=== PATIENT | female | born 1985 ===

== ENCOUNTER 2018-05-18 15:43 | Emergency (ER) | payer SELFPAY ==
[2018-05-18 15:43] VITALS: BMI 26.3
[2018-05-18 16:20] VITALS: O2SAT 100
[2018-05-18] MEDS ORDERED: Sodium Chloride 0.9% 1,000 ML IV STA (17:18)
[2018-05-18 17:26] LABS: HCG,QUALITATIVE URINE NEGATIVE (NEGATIVE); SQUAMOUS EPITHIAL 7 /hpf (0-5); URINE BACTERIA FEW (<OCC); URINE BILIRUBIN NEGATIVE (NEGATIVE); URINE BLOOD 2+ (NEGATIVE); URINE CLARITY Hazy (Clear); URINE COLOR Yellow (YELLOW); URINE GLUCOSE (UA) NORMAL (Normal); URINE LEUKOCYTE ESTERASE 2+ Leu/uL (Negative); URINE PROTEIN 1+ mg/dL (NEGATIVE); URINE UROBILINOGEN NORMAL mg/dL (0.2-1.0)
[2018-05-18 17:28] LABS: BASO % 0.2 % (0.0-2.0); EOS % 0.1 % (0.0-4.0); HEMOGLOBIN 13.7 g/dL (11.0-16.0); LYMPH # 0.7 K/uL (1.0-4.3); LYMPH % 4.3 % (20.0-40.0); MEAN CORPUSCULAR HEMOGLOBIN 30.1 pg (27.0-31.0); MEAN CORPUSCULAR HGB CONC 34.8 g/dL (33.0-37.0); MEAN PLATELET VOLUME 10.3 fL (7.2-11.7); MONO # 0.7 K/uL (0.0-0.8); MONO % 4.4 % (0.0-10.0); NEUT # 15.4 K/uL (1.8-7.0); PLATELET COUNT 210 K/uL (130-400); RBC 4.54 Mil/uL (3.80-5.20); RED CELL DISTRIBUTION WIDTH 12.7 % (11.5-14.5); WHITE BLOOD COUNT 16.9 K/uL (4.8-10.8)
[2018-05-18] MEDS ORDERED: Morphine 4 MG/ML VIAL ONE ×2 (17:28→20:27)
[2018-05-18] MEDS ORDERED: Sodium Chloride 0.9% 1,000 ML ONE (17:29)
[2018-05-18 17:34] LABS: MEAN CELL VOLUME 86.4 fL (81.0-99.0)
[2018-05-18 17:41] LABS: ALB/GLOB RATIO 1.2 (1.0-2.1); ALBUMIN 4.6 g/dL (3.5-5.0); ALT/SGPT 29 U/L (9-52); AST/SGOT 22 U/L (14-36); BLOOD UREA NITROGEN 20 mg/dL (7-17); CALCIUM 9.3 mg/dl (8.6-10.4); GFR NON-AFRICAN AMERICAN > 60; LIPASE 69 U/L (23-300)
--- NOTE | 2018-05-18 17:51 | C.PDOC ---
History Of Present Illness 32 y/o female presents to the ED complaining of right flank pain since this morning. She has PMHx of polycystic kidney disease and kidney stones. Otherwise patient denies any fever, chills, vomiting, diarrhea, dysuria, hematuria, or urinary frequency. <Tameka Whitlock - Last Filed: 05/18/18 19:06> History Per: Patient History/Exam Limitations: no limitations Onset/Duration Of Symptoms: Hrs Current Symptoms Are (Timing): Still Present Radiation Of Pain To:: Flank <Tameka Whitlock - Last Filed: 05/18/18 19:06> <Alana Guardado - Last Filed: 05/18/18 21:25> Time Seen by Provider: 05/18/18 16:30 Chief Complaint (Nursing): Abdominal Pain Past Medical History Reviewed: Historical Data, Nursing Documentation, Vital Signs Vital Signs: Last Vital Signs Temp 98.8 F 05/18/18 16:15 Pulse 80 05/18/18 16:15 Resp 20 05/18/18 16:15 BP 126/88 05/18/18 16:15 Pulse Ox 100 05/18/18 16:15 - Medical History PMH: Kidney Stones, Chronic Kidney Disease Surgical History: Cholecystectomy Family History: States: No Known Family Hx - Social History Hx Alcohol Use: No Hx Substance Use: No <Tameka Whitlock - Last Filed: 05/18/18 19:06> Vital Signs: Last Vital Signs Temp 99.0 F 05/18/18 19:20 Pulse 94 H 05/18/18 21:16 Resp 20 05/18/18 21:16 BP 117/72 05/18/18 21:16 Pulse Ox 100 05/18/18 21:16 <Alana Guardado - Last Filed: 05/18/18 21:25> Review Of Systems Except As Marked, All Systems Reviewed And Found Negative. Constitutional: Negative for: Fever, Chills Respiratory: Negative for: Shortness of Breath Gastrointestinal: Positive for: Nausea, Abdominal Pain. Negative for: Vomiting, Diarrhea, Constipation, Hematochezia Genitourinary: Negative for: Dysuria, Frequency, Incontinence, Hematuria Neurological: Negative for: Weakness, Dizziness <Tameka Whitlock - Last Filed: 05/18/18 19:06> Physical Exam - Physical Exam Appears: Non-toxic, In Acute Distress (mild painful distress), Other (Appears uncomfortable) Skin: Normal Color, Warm, Dry Head: Atraumatic, Normacephalic Eye(s): bilateral: Normal Inspection, PERRL, EOMI Oral Mucosa: Moist Neck: Normal ROM Chest: Symmetrical Cardiovascular: Rhythm Regular, No Murmur Gastrointestinal/Abdominal: Soft, Tenderness (slightly tender to right flank, no abdominal tenderness), No Guarding, No Rebound Back: CVA Tenderness (mild right CVA tenderness), No Vertebral Tenderness Extremity: Bilateral: Atraumatic, Normal Color And Temperature, Normal ROM Neurological/Psych: Oriented x3, Normal Speech <Tameka Whitlock - Last Filed: 05/18/18 19:06> ED Course And Treatment - Laboratory Results Result Diagrams: 05/18/18 17:22 05/18/18 17:22 O2 Sat by Pulse Oximetry: 100 (RA) Pulse Ox Interpretation: Normal Progress Note: Blood work and urine sent to the lab. Ordered CT Abd/Pelvis without contrast. Administered IVF hydration, 4 mg Zofran, and 4 mg Morphine. Labs demonstrate elevated WBC, elevated BUN. UA shows elevated WBC, and bacteria. Rocephine IV started. Urine culture sent. <Tameka Whitlock - Last Filed: 05/18/18 19:06> - Laboratory Results Result Diagrams: 05/18/18 17:22 05/18/18 17:22 Pulse Ox Interpretation: Normal Reevaluation Time: 21:24 Reassessment Condition: Improved <Alana Guardado - Last Filed: 05/18/18 21:25> Disposition - Disposition Disposition Time: 19:07 <Tameka Whitlock - Last Filed: 05/18/18 19:06> Counseled Patient/Family Regarding: Studies Performed, Diagnosis, Need For Followup, Rx Given <Alana Guardado - Last Filed: 05/18/18 21:25> - Disposition Referrals: Lolis Muhammad MD [Staff Provider] - Disposition: HOME/ ROUTINE Condition: FAIR Additional Instructions: Por favor regrese si los sntomas recurren Prescriptions: Nitrofurantoin Macrocrystals [Macrobid] 1 cap PO BID #14 cap Ondansetron ODT [Zofran ODT] 1 odt PO BID PRN #6 odt PRN Reason: Nausea/Vomiting traMADol [Ultram] 50 mg PO TID PRN #15 tab PRN Reason: Pain, Severe (8-10) Instructions: Urinary Tract Infection, Adult (DC), Polycystic Kidney Disease Forms: [facility] (Y[place]i) Print Language: PALESTINIAN - Clinical Impression Clinical Impression: Flank pain, UTI (urinary tract infection), Polycystic kidney disease - PA / SHEET LAYER / Resident Statement MD/DO has reviewed & agrees with the documentation as recorded. - Scribe Statement The provider has reviewed the documentation as recorded by the Scribe (Vanessa Grigsby) All medical record entries made by the Scribe were at my direction and personally dictated by me. I have reviewed the chart and agree that the record accurately reflects my personal performance of the history, physical exam, medical decision making, and the department course for this patient. I have also personally directed, reviewed, and agree with the discharge instructions and disposition. <Tameka Whitlock - Last Filed: 05/18/18 19:06> Physician Patient Turnover Patient Signed Over To: Alana Guardado Handoff Comments: pending CT and dispo <Tameka Whitlock - Last Filed: 05/18/18 19:06>
[2018-05-18] MEDS ORDERED: Potassium Chloride 20 mEq/15 ml LIQ UD PO STA (17:57)
[2018-05-18] MEDS ORDERED: Potassium Chloride 20 mEq ER Tab PO ONE (18:20)
[2018-05-18 19:02] LABS: BANDS 3 % (0-2); EOSINOPHIL 1 % (0-4); LYMPHOCYTE 4 % (20-40); MONOCYTE 8 % (0-10); NEUTROPHIL 84 % (50-75); PLATELET ESTIMATE NORMAL (NORMAL); TOTAL CELLS COUNTED 100
--- NOTE | 2018-05-18 19:03 | CT ---
PROCEDURE: CT Abdomen and Pelvis without Oral or IV contrast. HISTORY: right flank pain COMPARISON: None available TECHNIQUE: Contiguous axial images of the abdomen and pelvis. No oral or IV contrast administered. Coronal and Sagittal reformats generated and reviewed. Radiation dose: Total exam DLP = 387.69 mGy-cm. This CT exam was performed using one or more of the following dose reduction techniques: Automated exposure control, adjustment of the mA and/or kV according to patient size, and/or use of iterative reconstruction technique. FINDINGS: There is limited evaluation of the solid organs without the administration of IV contrast. LOWER THORAX: No visible consolidation, pleural effusion, or pneumothorax. LIVER: Unremarkable unenhanced appearance. GALLBLADDER AND BILE DUCTS: The gallbladder is not visualized presumably due to cholecystectomy however surgical clips are not identified. PANCREAS: Unremarkable unenhanced appearance. SPLEEN: 9 mm probable splenule. Otherwise unremarkable unenhanced appearance. ADRENALS: Unremarkable unenhanced appearance. KIDNEYS AND URETERS: Innumerable cystic lesions throughout bilateral kidneys as well as punctate calcifications. No evidence of hydronephrosis. Several vague regions of increased density (for example 5 mm right lower pole, 7 mm right mid pole, 5 mm left upper pole, 8 mm right midpole), indeterminate. BLADDER: The urinary bladder appears unremarkable. REPRODUCTIVE: Uterus is present. APPENDIX: The appendix is not identified. No secondary signs of acute appendicitis. BOWEL: The stomach is nondistended. Lack of oral contrast limits evaluation for bowel pathology. The bowel loops appear within normal limits of caliber without evidence of intestinal obstruction. PERITONEUM: Small pelvic free fluid. No definite free air. LYMPH NODES: No bulky lymphadenopathy identified. VASCULATURE: No aortic aneurysm. BONES: No acute osseous abnormality is detected. OTHER FINDINGS: None. IMPRESSION: Innumerable cystic lesions throughout bilateral kidneys as well as punctate calcifications. No evidence of hydronephrosis. Several vague regions of increased density (for example 5 mm right lower pole, 7 mm right mid pole, 5 mm left upper pole, 8 mm right midpole), indeterminate. Overall appearance similar to prior study and appears consistent with adult polycystic kidney disease. Small pelvic free fluid. The gallbladder is not visualized presumably due to cholecystectomy however surgical clips are not identified. The appendix is not identified. No secondary signs of acute appendicitis.
[2018-05-18 19:07] LABS: LARGE PLATELETS PRESENT; MICROCYTOSIS SLIGHT
[2018-05-18 21:17] VITALS: BP 117/72; PULSE 94; RESP 20
[2018-05-18 21:35] VITALS: TEMP 98.9
== END 2018-05-18 21:44 | disposition home or self-care (01) ==
LOC: C.ER 15:43
DX: N39.0 Urinary tract infection, site not specified (principal); Q61.3 Polycystic kidney, unspecified
CPT/HCPCS: 74176; 80053; 81001; 83690; 84703; 85025; 87086; 87181; 96361; 96374; 96375; 96376; 99285; C9113; J0696; J2270; J2405; J2765; J3480; J7030